=== PATIENT | male | born 1965 | race Caucasian/White ===

== ENCOUNTER 2016-12-21 12:44 | Inpatient (IN) | payer MEDICAID ==
[~2016-12-21] VITALS: Ht 165.1 cm; Wt 60.9 kg
--- NOTE | ~2016-12-21 | CON ---
PATIENT'S NAME: FADIA BALTAZAR [facility] AGE: 51 Y [address] ROOM: [place] [address] LOCATION: GPCU ADMIT DATE: 12/21/2016 Consultation DISCHARGE DATE: 12/28/2016 FAMILY PHYSICIAN: Mary Carmen Otero MD ATTENDING PHYSICIAN: Doreen Perkins DATE OF CONSULTATION: 12/21/2016 REFERRING PHYSICIAN: Doreen Perkins MD INDICATION FOR CONSULTATION: Cardiac arrest. HISTORY OF PRESENTING ILLNESS: Mr. Baltazar is a 51-year-old gentleman, male, who has a known history of coronary artery disease, after myocardial infarction approximately 13 years ago which was treated by stenting to coronary artery disease in [place], [place]. Subsequently, the patient became uninsured and was lost to follow up. The patient's history is all obtained from what was given in the chart and the information obtained from [facility]. Apparently, the patient had been complaining of excessive fatigue, poor appetite with poor intake, he also has not been himself. He was short of breath and felt he had no air in his lungs and had to cut down significantly on his smoking. The patient apparently was found down, CPR was begun and he was shocked about twice in the field, in a VFib rhythm when he arrived to the emergency room in [facility]. He was given epinephrine shock and amiodarone brought him into a sinus rhythm. He was intubated and sedated and at that time his blood pressure was within stable ranges and he was stabilized hemodynamically, again the patient needed the resuscitative measures in the transport to the emergency department. The patient was taken to the laboratory mechanical technician by Cardiology and were able to stent the LAD and the diagonal. After the cardiac catheterization lab, the patient was first transferred to intensive care unit and Critical Care was called for critical care management. PAST MEDICAL HISTORY: Includes, 1. Coronary artery disease, status post SC. PATIENT'S NAME: FADIA BALTAZAR [facility] AGE: 51 Y [address] ROOM: [address] [address] LOCATION: GPCU ADMIT DATE: 12/21/2016 Consultation DISCHARGE DATE: 12/28/2016 FAMILY PHYSICIAN: Mary Carmen Otero MD ATTENDING PHYSICIAN: Doreen Perkins 2. Remarkable for a lack of medical care. 3. Extremely poor dentition. PAST SURGICAL HISTORY: He had a procedure of eye surgery in the past couple of years. He did have cardiac catheterization 13 years ago. ALLERGIES: THERE IS A QUESTIONABLE PENICILLIN ALLERGY. SOCIAL HISTORY: The patient was until his on August 13, 2015, since then he has continued to live with his two younger children. 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 He smoked about half a pack per day for the past 30 years. He drinks 2-3 beers a day according to his family. There is no knowledge of other illicit drug abuse. FAMILY HISTORY: The patient's mother at the age of 51 with complications of viral cardiomyopathy. She actually had gastric hemorrhage. The patient's father at age 72 secondary to ruptured aortic aneurysm. His sister also has viral cardiomyopathy with arrhythmia, reliant on an AICD. REVIEW OF SYSTEMS: Currently unobtainable. The patient is intubated and sedated. LABORATORY DATA: At the time of evaluation, the patient had an INR 1.1, pro-time was 12.5, PTT was 36. White blood cell count was 21.7, hemoglobin was 14.8, hematocrit was 46, MCV was 85, platelets were 401, neutrophils 60, bands 2, lymphocytes 37,. Sodium was 136, potassium 3.9, chloride and CO2 were 101 and 19 respectively, glucose 208, BUN and creatinine was 15 and 1.24 respectively, GFR is greater than 60, calcium is 9.3, total protein is 7.9, albumin was 4.3, AST and ALT were 85 and 56 respectively. Troponin at noon was 0.02. PHYSICAL EXAMINATION: GENERAL: Upon initial evaluation, the patient is lying in bed, in the intensive care unit. VITAL SIGNS: Include blood pressure is 185/85, heart rate was 100, respiratory rate was 32, temperature was 33.5 as the patient has been started on hypothermia protocol. HEENT: Eyes are nonicteric. Pupils are equal and reactive to light. The patient has been moving all his extremities, and apparently according to the nursing staff, he did open his eyes spontaneously. Normocephalic, PATIENT'S NAME: FADIA BALTAZAR [facility] AGE: 51 Y [address]: [address] [address] LOCATION: GPCU ADMIT DATE: 12/21/2016 Consultation DISCHARGE DATE: 12/28/2016 FAMILY PHYSICIAN: Mary Carmen Otero MD ATTENDING PHYSICIAN: Doreen Perkins. There is a tube 22 at the lip line. No ear or nasal discharge noted. NECK: Supple. No lymphadenopathy. No jugular venous distention. LUNGS: Good bilateral air entry. No rales or rhonchi are noted. HEART: S1, S2. No murmurs, rubs, or gallops are appreciated. ABDOMEN: Soft, nontender, no palpable organs. Positive bowel sounds. EXTREMITIES: No clubbing, edema, or cyanosis noted. NEUROLOGICAL EXAMINATION: The patient is not fully awake, but is opening eyes spontaneously. Has reactive pupils and gag reflex is intact. Moving all four extremities and some of his movements are actually purposeful. IMPRESSION AND PLAN: Cardiac arrest. Currently on hypothermia protocol. Given the fact that the patient's neurological assessment was not done correctly, this hypothermia protocol is not appropriate, we will discontinue hypothermia protocol, we will discontinue the sedation, and we will evaluate the patient neurologically. After the neurological evaluation of the patient, the patient is moving all four extremities spontaneously, opening eyes, and purposeful movements of the hands, we will discontinue the sedation. We will do weaning parameters and possibly extubate the patient. I would discontinue all the pressor support given the patient has sustained a good blood pressure and is actually hypertensive. At the current point, the patient was extubated, O2 nasal cannula. I would continue his current medication recommended by Cardiology for his stenting. Neurologically, the patient is still confused, but awake, alert, and starting to orient. I would recommend that the patient put on restraints at the current point. I hold all sedation at the current point. Gastrointestinal and deep venous thrombosis prophylaxis. I do not recommend any further sedation for this patient. Some Precedex (dexmedetomidine) to help to calm the patient down. I would avoid all benzodiazepines, propofol, and antipsychotics. PATIENT'S NAME: FADIA BALTAZAR [facility] AGE: 51 Y [address] ROOM: [address] [address] LOCATION: GPCU ADMIT DATE: 12/21/2016 Consultation DISCHARGE DATE: 12/28/2016 FAMILY PHYSICIAN: Mary Carmen Otero MD ATTENDING PHYSICIAN: Doreen Perkins Nicotine patch. I have spent 65 minutes in critical care time in the care of this patient. Thank you for allowing me to participate in care of this patient. MD AYESHA ALVAREZ/luly /[id number] d: 12/31/16 1414 t: 02/05/17 0909, CONSULTATION REPORT
--- NOTE | ~2016-12-21 | HP ---
PATIENT'S NAME: FADIA BALTAZAR [facility] AGE: 51 Y [address] ROOM: [address] [address] LOCATION: [facility] ADMIT DATE: 12/21/2016 History & Physical DISCHARGE DATE: FAMILY PHYSICIAN: PHYSICIAN, UNKNOWN ATTENDING PHYSICIAN: PAPO RAINEY DATE OF SERVICE: ADDENDUM: PHYSICAL EXAMINATION: GENERAL: This is a thin male who appears much older than stated biologic age. He is in a state of poor hygiene. HEENT: Pupils are equal and sluggishly reactive. Sclerae anicteric. Palpebral conjunctivae are pink without exudate. There is a long untrimmed mcclelland. Oropharynx is remarkable for severely caried teeth, many missing teeth. NECK: Supple without lymphadenopathy or thyromegaly. There is bluish discoloration of the skin of the upper chest and neck. There is no supraclavicular lymphadenopathy. LUNGS: Clear to auscultation bilaterally. CARDIOVASCULAR: There is a 3/6 systolic murmur with a gallop. ABDOMEN: Scaphoid, flat with only the scantest of bowel sounds audible. No mass. EXTREMITIES: There is no edema, cannot palpate pedal or radial pulses, very dusky color and is cool throughout the body, especially the feet. The packing for the radial cath site is intact. There is no bleeding noted. NEUROLOGIC: There is no response to voice or touch. There is some slight twitching on the body. GENITOURINARY: Walter catheter is in place. He is a circumcised male with very small amount of dark amauri urine. PAPO RAINEY MD LM/luly /[id number] D: T: 711 HISTORY & PHYSICAL
--- NOTE | ~2016-12-21 | DS ---
PATIENT'S NAME: FADIA BALTAZAR [facility] AGE: 51 Y [address] ROOM: [address] [place], [place] [address] LOCATION: GPCU ADMIT DATE: 12/21/2016 Discharge Summary DISCHARGE DATE: 12/28/2016 FAMILY PHYSICIAN: Mary Carmen Otero MD ATTENDING PHYSICIAN: Doreen Perkins PRINCIPAL DIAGNOSES: 1. Cardiac arrest. 2. Ischemic cardiomyopathy. 3. Acute coronary syndrome, status post percutaneous intervention, angioplasty, and stenting. 4. Multiple cavitary and then cavitary lung lesions. 5. Vancomycin-resistant enterococcal urinary tract infection. 6. Acute systolic congestive heart failure. HOSPITAL COURSE: Please refer to the admission H and P for a detailed history of initial presentation. This is a 51-year-old male with history of heavy smoking, who presented after having a cardiac arrest on the field and had undergone a few cycles of CPR with successful resuscitation and was subsequently admitted to the ICU. The patient apparently had a VFib arrest and was taken to the open hearth laborer and was noted to have significant coronary artery disease with 3 drug-eluting stents placed emergently. The patient was briefly started on hypothermia protocol and showed significant improvement promptly, and this was stopped. The patient was subsequently extubated and monitored, and during coming days the patient continued to improve, and at this point, he is essentially without any neurological deficits from the cardiac arrest. The patient now with an EF of 35% to 40%; and has been successfully started on all core measure cardiac medications, and he is tolerating it well. The patient is to continue taking dual-antiplatelet therapy as well as all his cardiac medications. The patient was also evaluated for a LifeVest, and that has been arranged, and he is wearing one now, and he is to continue to wear this for the next 30 to 40 days and will have a Cardiology followup in a couple of weeks as well. In addition, the patient was noted to have concerning chest x-ray findings, which prompted an evaluation with chest CT and was noted to have multiple cavitary and then cavitary lung lesions concerning for malignancy. Pulmonology Service was consulted for evaluation of this, however, attempts to facilitate biopsy with IR were not successful due to the patient being on dual-antiplatelet therapy. At this point since stopping or interpreting anti-platelet therapy is not reasonable in this setting. The patient is to follow up with pulmonology clinic with Dr. Pruitt in 1 to 2 weeks to continue to work on what would be the best way to evaluate these lung lesions, and this has been extensively discussed with the patient, and the patient's sister. The patient today is being discharged in satisfactory condition, and he will follow up with cardiology, Dr. Mcgovern in 2 weeks and pulmonology, Dr. Pruitt, in 1 to 2 PATIENT'S NAME: FADIA BALTAZAR [facility] AGE: 51 Y [address] ROOM: [address] [place], [place] [address] LOCATION: GPCU ADMIT DATE: 12/21/2016 Discharge Summary DISCHARGE DATE: 12/28/2016 FAMILY PHYSICIAN: Mary Carmen Otero MD ATTENDING PHYSICIAN: Doreen Perkins as well as his primary care physician in 1 week. PHYSICAL EXAMINATION: GENERAL: On exam, the patient today is alert, awake, and oriented x3, in no acute distress. CHEST: Clear to auscultation bilaterally. HEART: S1, S2, regular rate and rhythm. ABDOMEN: Soft, nontender, and nondistended. A 4 cm diameter hematoma noted periumbilically and appears to be that hematoma from Lovenox injection site. NEUROLOGIC: Nonfocal. MEDICATIONS: Per AUG. DISPOSITION: Home. Greater than 30 minutes were spent in discharge planning and facilitating. MD USHA CAPONE/luly /[id number] d: 12/29/16 0429 t: 01/01/17 1520, DISCHARGE SUMMARY
--- NOTE | ~2016-12-21 | CATH ---
Cardiac Diagnostic + PCI Report Demographics Patient Name GIOVANNY Jennings Gender Male Date of 1965 Age 51 year(s) Patient Number [id number] Date of Study 12/21/2016 Visit Number [id number] Room Number [address] [place] [id number] Ht 167.64 cm Wt 68.8 kg Referring Dinesh Welch MD Primary Physician Physician Maddie Logan MD Performing Efstratiou Secondary Physician Physician Farzaneh Hobbs MD Diagnostic Efstratiou Assisting Physician Physician Farzaneh Hobbs MD Interventional Efstratiou Physician Can Filling Machine Operator Physician Farzaneh Hobbs MD Findings and Conclusions Diagnostic Findings and Conclusion RCA and Circ appears CHIPPER OPERATOR's Focal disease in Distal LAD and proximal second diagonal Diagnostic Recommendations PCI to LAD/Diag 2 and if possible Circ Interventional Findings and Conclusion Successful LUCILA to Distal LAD and second diagonal. Successful advancement of wire down the obtuse marginal but lesion is not crossable with the smallest balloon available. Interventional Recommendations Aspirin and Brilinta after the insertion of orogastric tube. Hypothermia protocol. Procedure Description The patient was brought to the diagnostic cardiac catheterization-EP laboratory by emergency personal. Physician deemed procedure as EMERGENT. The planned puncture-incision site(s) were shaved and prepped with ChloraPrep and draped in the usual sterile manner. Conscious sedation, supplemental oxygen, and pain control medications were delivered by a registered nurse under physician guidance. Surface ECG rhythm, blood pressure measurement, and pulse oximetry were monitored throughout the procedure. Arterial access. The access site was infiltrated with lidocaine. The vessel was entered with the Seldinger technique. A sheath was advanced into the vessel and used for catheter placement. Left heart catheterization. A catheter was advanced across the aortic valve to the left ventricle under fluoroscopic guidance. Resting hemodynamics were obtained. Selective right coronary angiography. A catheter was advanced into the right coronary vessel ostium under fluoroscopic guidance. Contrast was injected by hand. Images were obtained in multiple projections. Selective left coronary angiography. A catheter was advanced into the left coronary vessel ostium under Fluoroscopic guidance. Contrast was injected by hand. Images were obtained in multiple projections. Angioplasty and Stent Placement: A guiding catheter was used to intubate the vessel. A 0.14 wire was then used to cross the lesion. A balloon catheter was placed across the lesion and inflated. The balloon catheter was then removed. A Drug Eluting Stent was placed and inflated. Post placement angiograms were performed. Angioplasty: A guiding catheter was used to intubate the vessel. A 0.14 wire was used to cross the lesion. A balloon was positioned across the lesion and inflated. Post placement angiograms were performed. Arterial artery hemostasis was achieved. The patient was transferred to ICU via cart accompanied by a nurse. The patient left the laboratory in stable condition. Diagnostic Cath Status: Emergency Interventional Cath Status: Emergency Procedure Procedure Type Diagnostic procedure:Angiography:, Coronary Angios /[facility] PCI procedure:Drug Eluting Coronary Stent:, LAD, Diagonal, PTCA:, LAD, Diagonal, CFX Indications: Post Code. The procedure was explained in detail to the patient. Risks, complications and alternative treatments were reviewed. Written consent was obtained. Medications Reviewed with Patient prior to Procedure. Angiographic Findings Dominance: Right Cardiac Arteries and Lesion Findings LMCA: Abnormal. Lesion on LMCA: 10% stenosis . LAD: Abnormal.The 1st Diag appears abnormal. The 2nd Diag appears abnormal. Lesion on 2nd Diag: Proximal subsection.80% stenosis reduced to 0%. Pre procedure MONICA III flow was noted. Post Procedure MONICA III flow was present. The guidewire cross was successful.The lesion was diagnosed as a moderate risk lesion.Culprit lesion. Devices used - Emerge Balloon 2.0 x 15. 1 inflation(s) to a max pressure of: 15 leana. - Promus Premier 2.5 x 24 Stent. 1 inflation(s) to a max pressure of: 11 leana. - NC Emerge Balloon 2.75 x 15. 1 inflation(s) to a max pressure of: 16 leana. - Whisper Wire .014 x 190. Number of passes: 1. Lesion on Dist LAD: Proximal subsection.85% stenosis reduced to 0%. Pre procedure MONICA III flow was noted. Post Procedure MONICA III flow was present. The guidewire cross was successful.The lesion was diagnosed as a moderate risk lesion.Culprit lesion. Devices used - Whisper Wire .014 x 190. Number of passes: 1. - Promus Premier 3.0 x 12 Stent. 1 inflation(s) to a max pressure of: 11 leana. - NC Emerge Balloon 3.25 x 8. 1 inflation(s) to a max pressure of: 14 leana. Lesion on 1st Dia% stenosis . Lesion on Prox LAD: 30% stenosis . LCx: Abnormal.The 1st ob Rut appears abnormal.There is a previous stent on Prox CX Mid subsection. There is a previous stent on Mid CX. There is a previous stent on 1st Ob Rut. Lesion on Prox CX: Ostial.100% stenosis reduced to 99%. Pre procedure MONICA 0 flow was noted. Post Procedure MONICA 0 flow was present. The guidewire cross was successful.The lesion was diagnosed as a high risk lesion.Chronic total occlusion. The lesion was previously treated with the following techniques: stent unknown type. Devices used - Qwiki OTW Push Balloon 1.2 x 8. 2 inflation(s) to a max pressure of: 18 leana. Lesion on 1st Ob Rut% stenosis reduced to 100%. Pre procedure MONICA 0 flow was noted. Post Procedure MONICA 0 flow was present. The guidewire cross was successful.The lesion was diagnosed as a high risk lesion.Chronic total occlusion. The lesion was previously treated with the following techniques: stent unknown type. This is in-stentrestenosis. Devices used - Whisper Wire .014 x 190. Number of passes: 1. - DOC Wire. Number of passes: 1. RCA: Abnormal. Lesion on Prox RCA: 70% stenosis . Comments:long Lesion on Mid RCA: 100% stenosis . Cardiac Collaterals - collateral flow from the Dist LAD to the 1st RPL. Coronary Tree Procedure Data Procedure Date Date: 12/21/2016Start: 01:31 PMEnd: 03:09 PM Entry Locations - Retrograde Percutaneous access was performed through the Right Radial artery (Primary location). A 6 Fr sheath was inserted. Unsuccessful closure attempt was performed using: an R band. Hemostasis was successfully obtained using Mechanical Compression. Closure Comments: Enoch smith placed band with 15 ml air. Procedure Medications Order and Administration + + +---------+---------+ !Time !Medication !Dosage !Route ! + + +---------+---------+ !12/21/2016 !Versed !2 mg !I.V. ! !01:30 PM ! ! ! ! + + +---------+---------+ !12/21/2016 !0.9% NaCl !100 ml/hr!I.V. drip! !01:34 PM ! ! ! ! + + +---------+---------+ !12/21/2016 !PAE Radial Cocktail: Heparin 5000 units,! !I.A. ! !01:35 PM !Nitroglycerin 200mcg, Verapamil 3 mg ! ! ! ! !(ACC_3) ! ! ! + + +---------+---------+ !12/21/2016 !0.9% NaCl !300 ml !I.V. ! !01:37 PM ! ! !bolus ! + + +---------+---------+ !12/21/2016 !Amiodarone !1 mg/min !I.V. drip! !01:37 PM ! ! ! ! + + +---------+---------+ !12/21/2016 !Vecuronium Truxton !10 mg !I.V. ! !01:38 PM ! ! ! ! + + +---------+---------+ !12/21/2016 !Versed !2 mg !I.V. ! !01:39 PM ! ! ! ! + + +---------+---------+ !12/21/2016 !Heparin (ACC_3) !5000 !I.V. ! !01:46 PM ! !units !bolus ! + + +---------+---------+ !12/21/2016 !Integrilin (ACC_7) !20 mg !I.C. ! !01:52 PM ! ! ! ! + + +---------+---------+ !12/21/2016 !Lopressor !2.5 mg !I.V. ! !01:58 PM ! ! ! ! + + +---------+---------+ !12/21/2016 !Nitroglycerin !200 mcg !I.C. ! !02:10 PM ! ! ! ! + + +---------+---------+ !12/21/2016 !Nitroglycerin !100 mcg !I.C. ! !02:10 PM ! ! ! ! + + +---------+---------+ !12/21/2016 !Nitroglycerin !5 mcg/min!I.V. drip! !02:36 PM ! ! ! ! + + +---------+---------+ Devices Used - A6 Fr. BS JR 4 Diag. Catheterwas used for:Right coronary angiography. - A6 Fr. BS JL 3.5 Diag. Catheterwas used for:Left coronary angiography. - A6 Fr. XBLAD 3.5 Guide Catheterwas used for:Diagonal Intervention. Contrast Material - Isovue [id number] ml Fluoroscopy Time: Diagnostic: 17:54 minutes. Total: 17:54 minutes. Fluoroscopy Dose: Diagnostic: 759 mGy. Total: 759 mGy. Estimated Blood Loss: 25 ml. Additional [facility] PCI Information PCI Indication:PCI for high risk Non-STEMI or unstable angina. Medical History Performed Procedures and Imaging Results - No [facility] stress or imaging studies were performed. Allergies - No known allergies. Risk Factors The patient risk factors include:prior PCI on 06/25/2003;last creatinine: 1.2 mg/dl, creatinine clearance: 70.07 ml/min, Current/Recent(w/in 1 year) tobacco use and prior VT . Admission Data Admission Date: 12/21/2016 Admission Time: 12:44 PM Admit Source: [facility] Insurance Payors: None. Clinical Evaluation Leading to Procedure Diagnosed on 12/21/2016 12:00 AM. - There were no CAD presentation symptoms. - The patient has had an episode of cardiac arrest within the last 24 hrs. Snapshots Hemodynamics Condition: Rest O2 Consumption: Estimated: 243.60Heart Rate: 117 bpm Pressures (mmHg) +-----+ + !Site !Pressure ! +-----+ + !LV !91/4 ,12 ! +-----+ + !LV !90/5 ,12 ! +-----+ + !AO !98/60 (78) ! +-----+ + !LV !87/4 ,11 ! +-----+ + !AO !96/60 (76) ! +-----+ + !AO !123/89 (104) ! +-----+ + !AO !150/105 (124) ! +-----+ + Valve Gradients and Areas + +---------+---------+---------+ +---------+ + !Valve !Peak !Mean !Area !Index !Flow !Source ! + +---------+---------+---------+ +---------+ + !Aortic !0 !0 ! ! ! ! ! + +---------+---------+---------+ +---------+ + !Aortic !0 !0 ! ! ! ! ! + +---------+---------+---------+ +---------+ + Shunts Oxygen Values O2 Capacity 201.28 O2 Consumption 243.6 Signatures dtt: Caitlyn Mcgovern dtd: 12/21/16 1331 Physician Self Edit
--- NOTE | ~2016-12-21 | HP ---
PATIENT'S NAME: FADIA BALTAZAR [facility] AGE: 51 Y [address] ROOM: G6204 [place], [place] [address] LOCATION: [facility] ADMIT DATE: 12/21/2016 History & Physical DISCHARGE DATE: FAMILY PHYSICIAN: PHYSICIAN, UNKNOWN ATTENDING PHYSICIAN: PAPO RAINEY DATE OF SERVICE: 12/21/2016 CHIEF COMPLAINT: Cardiac arrest in the field. HISTORY OF PRESENT ILLNESS: Mr. Baltazar is a 51-year-old male who has a known history of coronary artery disease after myocardial infarction approximately 13 years ago, which was treated by stenting to two coronary arteries in [place], [place]. Subsequently, he became uninsured, was unable to afford his medicines or see his physicians. He has been off all medications and has no medical followup in the recent past. The patient's history is all obtained from what was given to me by Dr. Montiel of the emergency room in [place] and family, mostly Ute, the patient's sister. According to Ute, the patient recently began complaining of excessive fatigue, poor appetite with poor intake, his sister also said that his color appeared dias or ashen, and he reported he was short of breath and felt he had no air in his lungs and had cutdown significantly on smoking. He also admitted that he had difficulty working outside recently. In addition, he reported urinary urgency, burning, frequency, and difficulty with his flow in the recent past. His youngest child, 12-year-old daughter, Chelsie, reports he has been going to bed early lately. Dr. Montiel from [place] [facility] notified me of the patient's need to be transferred to our facility and stated that his coworkers saw him go into a building and briefly thereafter went to look for him, he was found down, CPR was begun, he was shocked about twice in the field in a VFib rhythm. When he arrived at the emergency room there, he was given epi, shock, and amiodarone brought him into a sinus rhythm. He was intubated and sedated; and at that time, his blood pressure was 123/64, heart rate is 94, oxygen saturation 99%. However, in the interim during transport, he again needed resuscitative measures. He was taken directly to the Mix Technician here at the hospital and again required recurrent resuscitative measures. Dr. Mcgovern was able to stent the LAD, the diagonal twice. Please see his documentation for more details on the cardiac catheterization, which was done before his admission to the ICU when I met him. When I came to see the patient, he was being placed on the hypothermia PATIENT'S NAME: FADIA BALTAZAR [facility] AGE: 51 Y [address] ROOM: [place] [address] LOCATION: [facility] ADMIT DATE: 12/21/2016 History & Physical DISCHARGE DATE: FAMILY PHYSICIAN: PHYSICIAN, UNKNOWN ATTENDING PHYSICIAN: PAPO RAINEY protocol and will continue on the ventilator for further monitoring and treatment here. PAST MEDICAL HISTORY: 1. Coronary artery disease, status post MD. 2. Remarkable for a lack of medical care. 3. Extremely poor dentition. PAST SURGICAL HISTORY: He had a procedure to remove diodes of a battery from his right eye in the past couple of years. ALLERGIES: QUESTIONABLE PENICILLIN ALLERGY, CANNOT BE CORROBORATED. HIS SISTER THINKS HE MAY HAVE BEEN ALLERGIC TO PENICILLIN HER FATHER WAS. SOCIAL HISTORY: The patient was until his on August 13, 2015; and since then, he has continued to live with his 2 younger children Isaías and Chelsie. 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 He did dip and smoked about half-a-pack per day for 30 years. He drank 2 to 3 beers a day according to his family reports. There is no knowledge of other illicit drug use. FAMILY HISTORY: The patient's mother at age 51 with complications of viral cardiomyopathy. She actually had gastric hemorrhage. The patient's father at age 72 of ruptured abdominal aortic aneurysm. His 56-year-old sister Ute who is here reports viral cardiomyopathy with arrhythmia reliant on an AICD and he has another sister in her late 50s with insulin-dependent diabetes mellitus. REVIEW OF SYSTEMS: Negative except as in the HPI because the patient is intubated and sedated and no other history can be obtained at this time. LABORATORY DATA: I will give you from what was available from [place] [facility], he had an INR of 1.1, pro-time of 12.5, and PTT of 36. White blood cell count 21.7, hemoglobin 14.8, hematocrit 46, MCV 85, platelets 401, neutrophils 60, bands 2, and lymphocytes 37. Sodium 136, potassium 3.9, chloride 101, CO2 19, glucose 208, BUN 15, creatinine 1.24, GFR is greater than 60, calcium 9.3, total protein 7.9, albumin 4.3, AST 85, AST 56, troponin at noon was 0.02. I do not have any radiographic studies. ASSESSMENT AND PLAN: PATIENT'S NAME: FADIA BALTAZAR [facility] AGE: 51 Y [address] ROOM: [address] [address] LOCATION: [facility] ADMIT DATE: 12/21/2016 History & Physical DISCHARGE DATE: FAMILY PHYSICIAN: PHYSICIAN, UNKNOWN ATTENDING PHYSICIAN: PAPO RAINEY 1. Severe coronary artery disease. The patient has had the lesions addressed and is on hypothermia protocol in the ICU. Family has been apprised of his status, allowed to visit, and their questions have been addressed. We will continue with this protocol according to Dr. Mcgovern's recommendations for his coronary artery disease. 2. Leukocytosis. He did have an elevated white count, which could be attributable to demargination with the stress of cardiac arrest and resuscitation efforts. However, we will check blood cultures, urinalysis, urine culture, and watch for signs and symptoms of infection. 3. Acute respiratory failure. He is currently not responsive, not sedated, and no sedation has been required since he arrived in the ICU at 1448 hours this afternoon. He will be monitored closely and we may need to consider consulting Neurology if he fails to have meaningful responses. 4. As far as Nephrology, he has had 700 mL out on arrival to the ICU and he has not had much urine output since then and we will monitor his output closely and may need to consult Nephrology. 5. Disposition. Continue aggressive care in the ICU and keep the family well-updated. PAPO RAINEY MD LM/luly /[id number] D: [id number] HISTORY & PHYSICAL
--- NOTE | ~2016-12-21 | CON ---
PATIENT'S NAME: FADIA BALTAZAR [facility] AGE: 51 Y [address] ROOM: G6329 [place], [place] [address] LOCATION: GPCU ADMIT DATE: 12/21/2016 Consultation DISCHARGE DATE: FAMILY PHYSICIAN: Mary Carmen Otero MD ATTENDING PHYSICIAN: PAPO RAINEY REASON FOR CARDIOLOGY CONSULT: Ventricular fibrillation, cardiac arrest, and status post heart catheterization. HISTORY OF PRESENT ILLNESS: This is a 51-year-old male. His health history and events leading up to his admission are retrieved from chart review due to the patient's poor mentation and remembrance of details around the event. He has a known coronary artery disease history with a previous CT about 13 years ago with stents placed in [place]. The patient has not been following up with health care providers due to not having health insurance. His family notes that he has been showing signs of increased fatigue and poor appetite and has been going to bed sooner. While at work yesterday, his coworkers found him unresponsive and performed CPR, and he did receive a shock from an external cardiac defibrillator. There was return of circulation prior to transfer to [facility] for higher level of care. There was also notation of another arrest while in the catheterization suite where he was taken emergently by Dr. Mcgovern for evaluation of coronary anatomy. At the time of this dictation, he is currently status post drug-eluting stent placement to the LAD and the diagonal artery. He is resting comfortably in bed at this time and has no complaints of pain, shortness of breath, palpitations, presyncope, syncope, nausea, or vomiting. PAST MEDICAL HISTORY: From chart review, coronary artery disease. PAST SURGICAL HISTORY: From chart review, removal of a piece of a battery from his right eye. FAMILY HISTORY: From chart review. His mother had a history of viral cardiomyopathy as well as gastric hemorrhage. The patient's father due to a ruptured abdominal aortic aneurysm at the age of 72. There is a sister who has cardiomyopathy as well as need for AICD for arrhythmias, and a sister with diabetes mellitus. SOCIAL HISTORY: The patient is a current daily cigarette smoker. He smokes a half a pack per day and has done so for the last 30 years. He admits to alcohol use on 7 days a week, and on those days, he will have up to 3 drinks at a time. He denies PATIENT'S NAME: FADIA BALTAZAR [facility] AGE: 51 Y [address] ROOM: [address] [place], [place] [address] LOCATION: GPCU ADMIT DATE: 12/21/2016 Consultation DISCHARGE DATE: FAMILY PHYSICIAN: Mary Carmen Otero MD ATTENDING PHYSICIAN: PAPO RAINEY illicit drug use. CURRENT MEDICATIONS: 1. Protonix 40 mg IV daily. 2. Amiodarone IV drip per protocol. 3. Levaquin 750 mg IV daily in the evening. 4. Aspirin 81 mg p.o. daily. 5. Brilinta 90 mg p.o. twice daily. 6. Amiodarone 200 mg p.o. twice daily. 7. Lipitor 80 mg p.o. daily. 8. Lopressor 25 mg p.o. twice daily. 9. Lovenox 40 mg subcu daily. 10. NicoDerm patch 14 mg transdermally daily. MEDICATION ALLERGIES: Include penicillin. REVIEW OF SYSTEMS: Pertinent positive review of systems listed in the HPI. All other review of systems attempted to be evaluated and compared with those in chart documentation. Full details hard to obtain due to the patient's confusion about details around admission. PHYSICAL EXAMINATION: VITAL SIGNS: Temperature 97.9, pulse 65, respirations 20, blood pressure 107/72, and O2 saturation 97% on room air. The patient weighs 62.5 kg. SKIN: He has a reddened hue to it, but warm and dry. EYES: Sclerae are clear. No xanthelasma. ENT: Oral mucosa is pink and moist. No jugular venous distention or carotid bruits. CHEST: Respirations are even and unlabored. Lungs are clear to auscultation to bilateral upper lobes. They are diminished to bilateral lower lobes. HEART: Regular rate and rhythm. The patient does have a 2/6 holosystolic murmur noted at the apex. ABDOMEN: Soft and nontender. MUSCULOSKELETAL: Equal muscle strength to upper and lower extremities bilaterally against resistance. EXTREMITIES: Peripheral pulses palpable. No clubbing, cyanosis, or edema. His right radial procedure site is soft and nontender with adequate circulation, movement, and sensation noted. PSYCHIATRIC: Alert and oriented. Mood and affect are appropriate. IMPRESSION AND PLAN: Per Dr. Mcgovern. 1. Ventricular fibrillation arrest with return of spontaneous circulation. PATIENT'S NAME: FADIA BALTAZAR [facility] AGE: 51 Y [address] ROOM: [address] [address] LOCATION: GPCU ADMIT DATE: 12/21/2016 Consultation DISCHARGE DATE: FAMILY PHYSICIAN: Mary Carmen Otero MD ATTENDING PHYSICIAN: PAPO RAINEY The patient was on hypothermia protocol for a very short amount of time, but he did spontaneously regain neurologic status and was awake and able to be successfully extubated. So, hypothermia protocol was discontinued. 2. Severe coronary artery disease. Currently, status post drug-eluting stent to the left anterior descending and the diagonal. There is also notation of chronic circumflex occlusion with collateral noted. He is on aspirin, Brilinta, statin and beta sharon. 3. Nonsustained ventricular tachycardia. 4. Ischemic cardiomyopathy. The patient currently has good neurologic recovery. He will need an ICD or a LifeVest prior to discharge. We will check an echocardiogram today to fully evaluate ejection fraction as well as look for wall motion and valvular abnormalities. We will continue to monitor, evaluate, and treat as appropriate. Thank you for this consult. Thank you for allowing [facility] to interact in the care of this patient. CJ AC MD DEH/luly /[id number] d: 12/22/16 1510 t: 01/02/17 0820, CONSULTATION REPORT
--- NOTE | ~2016-12-21 | ECHO ---
Transthoracic Echocardiography Report (TTE) Demographics Patient Name FADIA BALTAZAR Date of Study 12/22/2016 Patient Number [id number] Visit Number [id number] Date of 1965 Room Number G6329 Accession Number [id number] Gender Male Age 51 year(s) Referring Maddie Logan MD Loom Setter Avery Tamayo RVT Physician Physician Interpreting Efstratiou Operations Research Director Physician Farzaneh John MD Supervising Ordering Physician Maddie Logan MD, MD/MLP Nurse Stress Oracle Fusion Consultant Conclusions Contractility Score Summary At rest the following contractility abnormalities were noted: Hypokinesis of the Mid infero-septal, the Mid inferior, the Mid infero-lateral, the Basal infero-lateral, the Apical inferior, the Apical septal, the Basal infero-septal and the Basal inferior segments. Contractility of all other segments appeared normal. Summary Procedure Type of Study TTE procedure:2D Echocardiogram. Procedure Date Date: 12/22/2016 Start: 02:43 PM Study Location: Inpatient Portable Technical Quality: Adequate visualization Additional Indications:post cardiac arrest Appropriate Use Criteria: 9 Patient Status: Routine HR: 68 bpm BP: 97/66 mmHg Allergies - No known allergies. M-Mode/2D Measurements LV Diastolic Dimension: 5.79 cm LV Systolic Dimension: 5.13 cm LV Septum Diastolic: 1.59 cm LV PW Diastolic: 1.29 cm AO Root Dimension: 2.2 cm Cardiac Output: 2.93 l/min AV Cusp Separation: 1.8 cm LVOT: 2 cm RV Base: 3.41 cm LVOT VTI: 13.7 cm RV Mid: 3.66 cm LV Stroke volume: 43.02 ml TAPSE: 2.2 cm TDI-S': 9.1 cm/s Doppler Measurements AV Peak Velocity: 1.31 m/s MV Peak E-Wave: 0.88 m/s AV Peak Gradient: 6.86 mmHg MV Peak A-Wave: 0.57 m/s AV Mean Gradient: 4 mmHg MV E/A Ratio: 1.55 LVOT Peak Velocity: 0.73 m/s MV P1/2t: 61 msec TR Gradient:9.49 mmHg PV Peak Velocity: 0.95 m/s Estimated RAP:15 mmHg PV Peak Gradient: 3.61 mmHg Estimated RVSP: 24 mmHg Estimated PASP: 24.49 mmHg E' Septal Velocity: 0.07 m/s A' Septal Velocity: 0.11 m/s E' Lateral Velocity: 0.09 m/s A' Lateral Velocity: 0.08 m/s Findings Left Ventricle Mild concentric left ventricular hypertrophy. Diastolic assessment reveals Grade II pseudonormal diastolic function . False tendon noted in LV. The left ventricle is mildly dilated . Inferior, posterior and septal hypokinesis Estimated EF: 30 %. Right Ventricle Mildly dilated right ventricle. Left Atrium Normal left atrial size. Right Atrium IVC measures 2.18 cm with partial inspiratory collapse. The right atrium is mildly dilated. Mitral Valve Mild mitral annular calcification. Mild calcification of the mitral valve. Moderate mitral regurgitation by color Doppler. Aortic Valve The aortic valve is mildly sclerotic. Tricuspid Valve Trivial tricuspid regurgitation by color Doppler. Pulmonic Valve Normal pulmonic valve structure and function. Pericardial Effusion No evidence of pericardial effusion. Miscellaneous Visualized portions of the aortic root and ascending aorta appear normal in size. Pleural Effusion No evidence of pleural effusion. Contractility Score LV regional wall motion:(0-Non visualized 1-Normal 2-Hypokinesis 3-Akinesis 4-Dyskinesis 5-Aneurysm) Signature dtt: Caitlyn Mcgovern dtd: 12/22/16 1443 Physician Self Edit
[2016-12-21 17:00] LABS: HEMATOCRIT 44.9 % (37.0-53.0); MCH 28.3 pg (27.0-34.0); MCHC 31.2 gm/dL (32.0-36.5); MCV 90.7 fl (83.0-98.0); MPV 9.7 fl (9.4-12.4); PLATELET COUNT 514 K/uL (150-450); RBC 4.95 M/uL (4.00-6.00); RDW-CV 13.8 % (11.9-14.6)
[2016-12-21 17:03] LABS: WBC 38.8 K/uL (4.0-11.0)
[2016-12-21 17:15] LABS: ALBUMIN 3.1 gm/dL (3.5-5.0); ALK PHOS 92 IU/L (33-138); ALT 113 IU/L (12-78); ANION GAP 14.5 (10.0-19.0); AST 287 IU/L (10-40); BLOOD UREA NITROGEN 17 mg/dL (6-24); CALCIUM 7.7 mg/dL (8.5-10.5); CHLORIDE 108 mMol/L (96-110); CO2 21 mMol/L (22-32); CREATININE 1.2 mg/dL (0.6-1.3); ESTIMATED GFR (MDRD EQUATION) > 60; MAGNESIUM 2.9 mg/dL (1.8-2.6); PHOSPHORUS 6.4 mg/dL (2.5-4.9); POTASSIUM 4.5 mMol/L (3.7-5.1); SODIUM 139 mMol/L (135-145); TOTAL PROTEIN 6.9 g/dL (6.0-8.4)
[2016-12-21 17:36] LABS: ABSOLUTE NEUTROPHIL CT (ANC) 32.6 K/uL (1.4-9.0); BANDED NEUTROPHILS % 18 %; LYMPHOCYTE # 3.1 K/uL (0.8-4.0); LYMPHOCYTE % 7 %; MONOCYTE # 3.9 K/uL (0.0-1.0); SEGMENTED NEUTROPHIL # 25.6 K/uL (1.4-9.0); SEGMENTED NEUTROPHIL % 66 %
[2016-12-21 17:52] LABS: INR - (THERAPEUTIC) 1.23 (0.92-1.07); MAGNESIUM 2.9 mg/dL (1.8-2.6); PROTIME 12.9 SECONDS (9.8-11.4)
[2016-12-21 17:56] LABS: BILIRUBIN URINE NEGATIVE (NEGATIVE); BLOOD URINE 250 /UL (NEGATIVE); COLOR URINE YELLOW (YELLOW); GLUCOSE URINE 50 mg/dL (NEGATIVE); KETONE URINE NEGATIVE (NEGATIVE); LEUKOCYTES URINE NEGATIVE /UL (NEGATIVE); NITRITE URINE NEGATIVE (NEGATIVE); PROTEIN URINE 30 mg/dL (NEGATIVE); TURBIDITY URINE 3+ (CLEAR); UROBILINOGEN URINE NORMAL (NORMAL)
[2016-12-21 18:03] LABS: PCO2 44 mmHg (35-45); PO2 151 mmHg (80-90)
[2016-12-21 18:07] LABS: AMORPHOUS URINE 2+ (NEGATIVE); BACTERIA URINE MODERATE (NEGATIVE); RBC URINE 20-50 #/HPF (NEGATIVE); WBC URINE NEGATIVE #/HPF (NEGATIVE)
[2016-12-21 18:15] LABS: LACTATE 4.1 mEq/L (0.50-1.60)
--- NOTE | 2016-12-22 01:38 | NUR ---
Patient was extubated at 19:50 this shift.
[2016-12-22 02:21] LABS: ANION GAP 14.2 (10.0-19.0); BLOOD UREA NITROGEN 20 mg/dL (6-24); CALCIUM 7.8 mg/dL (8.5-10.5); CHLORIDE 111 mMol/L (96-110); CO2 19 mMol/L (22-32); CREATININE 0.8 mg/dL (0.6-1.3); ESTIMATED GFR (MDRD EQUATION) > 60; MAGNESIUM 2.3 mg/dL (1.8-2.6); POTASSIUM 4.2 mMol/L (3.7-5.1); SODIUM 140 mMol/L (135-145)
[2016-12-22 04:37] LABS: HEMOGLOBIN 11.9 g/dL (12.0-17.0)
[2016-12-22 04:58] LABS: ALK PHOS 72 IU/L (33-138); ALT 192 IU/L (12-78); ANION GAP 13.3 (10.0-19.0); BLOOD UREA NITROGEN 19 mg/dL (6-24); CALCIUM 8.1 mg/dL (8.5-10.5); CHLORIDE 109 mMol/L (96-110); CO2 21 mMol/L (22-32); CREATININE 0.7 mg/dL (0.6-1.3); ESTIMATED GFR (MDRD EQUATION) > 60; POTASSIUM 4.3 mMol/L (3.7-5.1); SODIUM 139 mMol/L (135-145); TOTAL PROTEIN 6.5 g/dL (6.0-8.4)
[2016-12-22 05:00] LABS: AST 411 IU/L (10-40); TOTAL BILIRUBIN 0.3 mg/dL (0.0-1.5)
--- NOTE | 2016-12-22 05:45 | NUR ---
Significant Event: PATIENT EXTUBATED AT 1954. AGITATED AND RESTLESS POST EXTUBATION. CALMED DOWN THROUGHOUT SHIFT. CONFUSED ABOUT REASON FOR ADMIT, ASKING WHERE HE IS AND WHY WITH ALL ROUNDING. MOVES ALL EXTREMITIES SPONTANEOUSLY AND TO COMMAND. STARTED ON LEVOPHED GTT TO MAINTAIN MAP 65-70 CURRENTLY AT 0.02MCG/KG/MIN. CONTINUES ON AMIODARONE GTT. HYPOTHERMIA DC'D AT 1909. ON ROOM AIR. PIV X3. WALTON WITH GOOD UOP. NPO WITH SIPS. Follow up:
--- NOTE | 2016-12-22 13:54 | NUR ---
PATIENT TRANSFERED UP TO ROOM 6329, PCU [place]. RECIEVING RN WAS MARBIN. PATIENT WENT UP IN RECLINER. PATIENT'S FAMILY MET PATIENT IN NEW ROOM ON PCU. PATIENT AND FAMILY WAS ACCEPTING OF THIS TRANSFER.
--- NOTE | 2016-12-22 15:22 | NUR ---
ST attempted to complete evaluation at 1508..Pt. completing ultrasound. 1517...Pt. with outsole caser. ST plan to follow-up when pt. available to participate in assessment.
--- NOTE | 2016-12-22 17:27 | NUR ---
Significant Event: Patient disoriented to time. Forgetful. VSS on RA. Amiodarone gtt off and will start PO amiodarone tonight. Transferred from ICU at 1120. Walter removed and has had post-residual void. RFA PIV infusing with NS at 75 ml/h. Speech consult due to cognition. Denies pain or shortness of breath. Plan to have CT of chest tomorrow without contrast. Follow up: Continue as per plan of care. Monitor for Vtach. Monitor neuro status.
--- NOTE | 2016-12-22 17:33 | NUR ---
Introduced self and role of care management to patient. He lives in [place] with 2 of his 3 children. He is self pay. Referral has been made to Emilia with [facility]. His sister wanted to talk to me about finances and he says she is in the waiting room. Checked waiting room several times but not there. He plans home when ready for discharge. Says his children will assist him. Will follow.
--- NOTE | 2016-12-23 04:56 | NUR ---
DISORIENT TO TIME. FORGETFUL. STATES IT IS 2006. HR 60-70s. SBP 110-120s. AFEBRILE. ROOM AIR. C/O SORNESS TO CHEST FROM CPR BEING PREFORMED. TYLENOL GIVEN WITH RELIEF NOTED. SBA UP TO BATHROOM. NO BM. NS RUNNING AT 75ML/HR. NO VOIDS OR URGENCY DURING SHIFT. BLADDER SCAN SHOWED GREATER THAN 999ML. ATTEMPTED TO STAND UP AND VOID WITH ONLY DRIBBLE. WALTON REPACED WITH 1400ML UOP INITIALLY.
[2016-12-23 14:21] LABS: BASOPHIL % 0.2 %; EOSINOPHIL % 0.4 %; HEMATOCRIT 35.4 % (37.0-53.0); HEMOGLOBIN 11.4 g/dL (12.0-17.0); IMMATURE GRANULOCYTE % 0.4 %; LYMPHOCYTE # 1.4 K/uL (0.8-4.0); LYMPHOCYTE % 13.9 %; MCH 27.8 pg (27.0-34.0); MCHC 32.2 gm/dL (32.0-36.5); MCV 86.3 fl (83.0-98.0); MONOCYTE # 0.6 K/uL (0.0-1.0); MONOCYTE % 6.6 %; MPV 9.7 fl (9.4-12.4); NEUTROPHIL # (ANC) 7.7 K/uL (1.4-9.0); NEUTROPHIL % 78.5 %; NRBC % 0 /100WBC (0-0.00); RDW-CV 13.9 % (11.9-14.6); WBC 9.8 K/uL (4.0-11.0)
[2016-12-23 14:22] LABS: PLATELET COUNT 208 K/uL (150-450)
--- NOTE | 2016-12-23 15:47 | NUR ---
Significant Event: Patient A/O x 2, forgetful, and up with SBA. Disoriented to time and consistently states that it is 2006. Speech therapist worked with patient today. CT of chest revealed multiple lung masses so Dr. Pruitt asked to come see the patient. Plan to have CT guided biopsy on Sunday. Walter catheter to dependent drainage- placed early this morning due to retention- 2300 ml UOP. RFA PIV SL and LFA PIV with NS infusing at 75 ml/h. MD talked to family today about plan of care and explained what has happened in the last few days thoroughly. Follow up: Continue as per plan of care. Monitor cognition. Plan for CT guided biopsy on Sunday.
[2016-12-24 04:57] LABS: BASOPHIL % 0.3 %; EOSINOPHIL % 0.4 %; HEMATOCRIT 38.1 % (37.0-53.0); IMMATURE GRANULOCYTE # 0.1 K/uL (0.0-0.3); IMMATURE GRANULOCYTE % 0.6 %; LYMPHOCYTE # 1.1 K/uL (0.8-4.0); LYMPHOCYTE % 11.6 %; MCHC 31.5 gm/dL (32.0-36.5); MCV 85.6 fl (83.0-98.0); MONOCYTE # 0.6 K/uL (0.0-1.0); MONOCYTE % 6.2 %; MPV 9.6 fl (9.4-12.4); NEUTROPHIL # (ANC) 7.3 K/uL (1.4-9.0); NEUTROPHIL % 80.9 %; NRBC % 0 /100WBC (0-0.00); PLATELET COUNT 226 K/uL (150-450); RBC 4.45 M/uL (4.00-6.00); RDW-CV 14.1 % (11.9-14.6); WBC 9.1 K/uL (4.0-11.0)
--- NOTE | 2016-12-24 05:00 | NUR ---
Patient is disoriented to time, states that it is 2012 or 2015. Lung sounds clear on RA. Walter catheter with 2,150mL output. CT guided biopsy on Sunday for multiple lung masses. VSS. No complains of pain. Left AC IV running NS at 75mL/hr and right hand IV saline locked.
[2016-12-24 05:11] LABS: ALBUMIN 2.6 gm/dL (3.5-5.0); ANION GAP 10.1 (10.0-19.0); BLOOD UREA NITROGEN 11 mg/dL (6-24); CALCIUM 8.2 mg/dL (8.5-10.5); CHLORIDE 110 mMol/L (96-110); CO2 25 mMol/L (22-32); CREATININE 0.7 mg/dL (0.6-1.3); ESTIMATED GFR (MDRD EQUATION) > 60; PHOSPHORUS 2.5 mg/dL (2.5-4.9); POTASSIUM 4.1 mMol/L (3.7-5.1); SODIUM 141 mMol/L (135-145)
--- NOTE | 2016-12-24 16:58 | NUR ---
Significant Event: Patient A/O x 3 today. Cognition and memory significantly improved from previous days. Able to remember date today and have quicker memory recall. Up in room independently. VSS on RA. LFA and PIV SL. Walter removed at 1315 and still awaiting post-residual void. BM this shift. Denies any needs throughout the day. Follow up: Continue as per plan of care. Continue to monitor neuro status urinary status.
[2016-12-25 03:40] LABS: BASOPHIL % 0.5 %; EOSINOPHIL # 0.1 K/uL (0.0-0.5); EOSINOPHIL % 0.6 %; HEMATOCRIT 42.8 % (37.0-53.0); HEMOGLOBIN 13.6 g/dL (12.0-17.0); IMMATURE GRANULOCYTE % 0.5 %; LYMPHOCYTE # 1.4 K/uL (0.8-4.0); LYMPHOCYTE % 16.3 %; MCH 27.4 pg (27.0-34.0); MCHC 31.8 gm/dL (32.0-36.5); MCV 86.3 fl (83.0-98.0); MONOCYTE # 0.6 K/uL (0.0-1.0); MONOCYTE % 6.7 %; MPV 9.9 fl (9.4-12.4); NEUTROPHIL # (ANC) 6.6 K/uL (1.4-9.0); NEUTROPHIL % 75.4 %; NRBC % 0 /100WBC (0-0.00); PLATELET COUNT 269 K/uL (150-450); RBC 4.96 M/uL (4.00-6.00); WBC 8.8 K/uL (4.0-11.0)
[2016-12-25 03:49] LABS: ALBUMIN 3.1 gm/dL (3.5-5.0); ANION GAP 11.3 (10.0-19.0); BLOOD UREA NITROGEN 13 mg/dL (6-24); CALCIUM 8.6 mg/dL (8.5-10.5); CHLORIDE 108 mMol/L (96-110); CO2 26 mMol/L (22-32); CREATININE 0.9 mg/dL (0.6-1.3); ESTIMATED GFR (MDRD EQUATION) > 60; PHOSPHORUS 3.7 mg/dL (2.5-4.9); POTASSIUM 4.3 mMol/L (3.7-5.1); SODIUM 141 mMol/L (135-145)
[2016-12-25 04:18] LABS: ALBUMIN 3.1 gm/dL (3.5-5.0); ALK PHOS 74 IU/L (33-138); ALT 139 IU/L (12-78); AST 137 IU/L (10-40); TOTAL BILIRUBIN 0.3 mg/dL (0.0-1.5)
[2016-12-25 04:25] LABS: CPK 3171 IU/L (35-332)
--- NOTE | 2016-12-25 05:09 | NUR ---
Patient A/Ox3. VSS on RA. Up ad devyn in room. Lungs clear. Bowel sounds present. Voiding well, started on flomax. No complaints. IVs saline locked.
--- NOTE | 2016-12-25 11:15 | NUR ---
Notified by speech therapy this a.m. that patient has some financial concerns and living arrangement concerns. Talked to patient, his sister and his 12 year old daughter present. Patient's last year. Daughter will be 13 soon. A 26 year old son also lives with him and he has told his son he is going to have to get a job and help out financially. Sister says his boss has told her if he has the life vest he does not want him working until it is off. He says that could mean 3-4 months before he can work at that job. 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 He says he knows he evicted one evelyn when he couldn't work anymore and he is afraid that could happen to him too. He says he is going to try and look for another job until he can return to current job. He is uncertain how much DrJennifer will let him do. Encouraged him to discuss with the Drs. what restrictions he will have on activity, lifting etc. Told him I will make a referral to Emilia with [employer] to come and talk with him about what things he may be eligible for and if able to apply for disability or medicaid. Told him I didn't think he could but having a minor child in his home, may help with some resources. Told him it will be up to [employer] if they approve for patient to have life vest or not since he does not have insurance and is unable to pay for it. He has financial assistance form for [facility] and sister says they will get it filled out. Referral made to Emilia with [employer] and she will try to touchbase with them today. Will follow.
--- NOTE | 2016-12-25 14:04 | NUR ---
A-NUTRITION F/U CBW (STANDING SCALE): 60.9 KG. ADMIT WT (BED SCALE): 63.9 KG LABS: NA 141, K+ 4.3, GLU 109, BUN 13, DRY DIP WORKER 0.9, ALB 3.1 MEDS: BRILINTA, PROTONIX DIET RX: CARDIAC W/ENSURE ENLIVE BID. PO INTAKE 75-100%. VISITED W/PT RE: SUPPLEMENT. PT STATES THAT HE LIKES IT AND THAT HE HAS BEEN DRINKING IT. REPORTS GOOD APPETITE. EST NUTR NEEDS: [id number] KCALS AND 75-96 GM PROTEIN D-AT NUTRITION RISK W/UNINTENDED WT LOSS GENERAL LABORER R/T INADEQUATE ORAL INTAKE AEB (+)MST, PT REPORT I-CONTINUE W/ENSURE ENLIVE BID M/E-GOAL: PO INTAKE >/=75% FOR DURATION OF ADMIT 1)F/U PO INTAKE, SUPPLEMENT, WT, AND POC IN 3-5 DAYS 2)ASSIST NEEDED
--- NOTE | 2016-12-25 16:57 | NUR ---
Significant Event:Patient has been up ad devyn in room without complaints of pain. It sounds like the lung biopsy will wait. Patient on room air. Starting to get anxious to go home. Decreased the Lopressor dose, his SBP 103 and 96 this am. Lowere the dose, with parameter to hold if SBP <95. Follow up:Needs life vest before discharge
[2016-12-26 04:16] LABS: BASOPHIL % 0.5 %; EOSINOPHIL # 0.1 K/uL (0.0-0.5); EOSINOPHIL % 1.1 %; HEMATOCRIT 38.5 % (37.0-53.0); HEMOGLOBIN 12.2 g/dL (12.0-17.0); IMMATURE GRANULOCYTE # 0.1 K/uL (0.0-0.3); IMMATURE GRANULOCYTE % 0.9 %; LYMPHOCYTE # 1.3 K/uL (0.8-4.0); LYMPHOCYTE % 15.6 %; MCH 27.3 pg (27.0-34.0); MCHC 31.7 gm/dL (32.0-36.5); MCV 86.1 fl (83.0-98.0); MONOCYTE # 0.7 K/uL (0.0-1.0); MPV 9.6 fl (9.4-12.4); NEUTROPHIL # (ANC) 6.3 K/uL (1.4-9.0); NEUTROPHIL % 73.9 %; NRBC % 0 /100WBC (0-0.00); PLATELET COUNT 250 K/uL (150-450); RBC 4.47 M/uL (4.00-6.00); RDW-CV 13.9 % (11.9-14.6); WBC 8.5 K/uL (4.0-11.0)
[2016-12-26 04:29] LABS: ALBUMIN 2.9 gm/dL (3.5-5.0); ANION GAP 11.4 (10.0-19.0); BLOOD UREA NITROGEN 15 mg/dL (6-24); CALCIUM 8.6 mg/dL (8.5-10.5); CHLORIDE 107 mMol/L (96-110); CO2 27 mMol/L (22-32); CREATININE 0.9 mg/dL (0.6-1.3); ESTIMATED GFR (MDRD EQUATION) > 60; PHOSPHORUS 3.6 mg/dL (2.5-4.9); POTASSIUM 4.4 mMol/L (3.7-5.1); SODIUM 141 mMol/L (135-145)
--- NOTE | 2016-12-26 04:41 | NUR ---
A/Ox3. VSS on RA. Up ad devyn in room. Lungs clear, bowel sounds present. IV in right anterior arm and left anterior arm. 1,200mL of output. No complaints. Needs a life vest on d/c.
--- NOTE | 2016-12-26 16:47 | NUR ---
Significant Event: VSS AND RA. DENIES PAIN. UP IN CHAIR AND AMBULATES IN [place] TODAY. ENTRESTO STARTED. Follow up: CONTINUE PLAN OF CARE; AWAITING LIFE VEST PRIOR TO D/C.
--- NOTE | 2016-12-27 04:08 | NUR ---
Significant Event: Patient A/Ox3. VSS on RA. Up independently in room. Patient has had no complaints of chest pain. SBP 99-103. HR 60s-70s. IV levaquin given x1. Follow up: Discharge in next few days? Needs life vest upon d/c.
[2016-12-27 04:55] LABS: BASOPHIL % 0.4 %; EOSINOPHIL # 0.1 K/uL (0.0-0.5); EOSINOPHIL % 0.8 %; HEMATOCRIT 38.4 % (37.0-53.0); HEMOGLOBIN 12.7 g/dL (12.0-17.0); IMMATURE GRANULOCYTE # 0.1 K/uL (0.0-0.3); IMMATURE GRANULOCYTE % 1.1 %; LYMPHOCYTE # 1.2 K/uL (0.8-4.0); LYMPHOCYTE % 11.3 %; MCH 28.4 pg (27.0-34.0); MCHC 33.1 gm/dL (32.0-36.5); MCV 85.9 fl (83.0-98.0); MONOCYTE # 0.9 K/uL (0.0-1.0); MONOCYTE % 8.9 %; MPV 9.7 fl (9.4-12.4); NEUTROPHIL # (ANC) 7.9 K/uL (1.4-9.0); NEUTROPHIL % 77.5 %; NRBC % 0 /100WBC (0-0.00); PLATELET COUNT 255 K/uL (150-450); RBC 4.47 M/uL (4.00-6.00); WBC 10.1 K/uL (4.0-11.0)
[2016-12-27 05:10] LABS: ALBUMIN 2.9 gm/dL (3.5-5.0); ANION GAP 10.4 (10.0-19.0); BLOOD UREA NITROGEN 19 mg/dL (6-24); CALCIUM 8.5 mg/dL (8.5-10.5); CHLORIDE 108 mMol/L (96-110); CO2 26 mMol/L (22-32); CREATININE 0.8 mg/dL (0.6-1.3); ESTIMATED GFR (MDRD EQUATION) > 60; MAGNESIUM 2.2 mg/dL (1.8-2.6); PHOSPHORUS 3.4 mg/dL (2.5-4.9); POTASSIUM 4.4 mMol/L (3.7-5.1); SODIUM 140 mMol/L (135-145)
--- NOTE | 2016-12-27 18:03 | NUR ---
Talked with Mary my restaurant hospitality manager this a.m. regarding life vest. Talked to staff this a.m and no one has heard from [facility] and they will check with Olman with [facility] to see where they are in the process. Notified late morning that referral was not faxed to [facility] but now has been. Talked with Emilia with [facility] and they have not filed for medicaid or disability but she will be helping them and she thinks he would qualify since has a young daughter at home. Talked to Olman with [facility] and he says is medicaid is pending they can see if meets qualifications and get him a life vest or we can do a contract with [facility]. Told him what Emilia from [facility] told me. He will follow up with their financial department. Notified patient and sister want to talk with me. Talked to Mary my restaurant hospitality manager and she has had a email from [facility] and she has asked him to look at [place] case through [facility] or approving under possible medicaid. Went and talked with patient, sister and several other family members. They are frustrated with the waiting and not knowing if he will get the vest or not. Told them I understand and where we are at in the process. Called Olman at [facility] and he says he updated his nurse. Olman mckay he will get set up with the lifevest in the next hour or so. Called his sister, Ute and updated her. She wonders if he will go home today. Talked to patient's nurse and she says Dr. Urbina said he would send him home tomorrow. She says she will go update patient and his sister. WIll follow.
--- NOTE | 2016-12-27 19:10 | NUR ---
Significant Event: PATIENT ALERT AND ORIENTED X3. VSS, AFEBRILE, ON ROOM AIR. NO C/O CHEST PAIN. UP AD JOHNATHAN IN ROOM/CHAIR. TO RECEIVE LIFE VEST THIS EVENING, DR. KAUR NOTIFIED NO NEW ORDERS, HOME TOMORROW. PATIENT AND FAMILY NOTIFIED. Follow up:
[2016-12-28 04:32] LABS: BASOPHIL % 0.4 %; EOSINOPHIL # 0.1 K/uL (0.0-0.5); EOSINOPHIL % 0.9 %; HEMATOCRIT 37.7 % (37.0-53.0); HEMOGLOBIN 12.2 g/dL (12.0-17.0); IMMATURE GRANULOCYTE # 0.1 K/uL (0.0-0.3); IMMATURE GRANULOCYTE % 1.3 %; LYMPHOCYTE # 1.3 K/uL (0.8-4.0); MCHC 32.4 gm/dL (32.0-36.5); MCV 86.7 fl (83.0-98.0); MONOCYTE # 0.9 K/uL (0.0-1.0); MONOCYTE % 8.9 %; MPV 10.1 fl (9.4-12.4); NEUTROPHIL # (ANC) 7.9 K/uL (1.4-9.0); NEUTROPHIL % 76.5 %; NRBC % 0 /100WBC (0-0.00); PLATELET COUNT 274 K/uL (150-450); RBC 4.35 M/uL (4.00-6.00); WBC 10.4 K/uL (4.0-11.0)
[2016-12-28 04:53] LABS: ANION GAP 12.7 (10.0-19.0); BLOOD UREA NITROGEN 20 mg/dL (6-24); CALCIUM 8.4 mg/dL (8.5-10.5); CHLORIDE 105 mMol/L (96-110); CO2 27 mMol/L (22-32); CREATININE 0.8 mg/dL (0.6-1.3); ESTIMATED GFR (MDRD EQUATION) > 60; MAGNESIUM 2.2 mg/dL (1.8-2.6); PHOSPHORUS 3.6 mg/dL (2.5-4.9); POTASSIUM 4.7 mMol/L (3.7-5.1); SODIUM 140 mMol/L (135-145)
--- NOTE | 2016-12-28 05:08 | NUR ---
A/O X 3. Lung sounds clear on RA. Bowel sounds present. Up independently in room. VSS. IV levaquin given x1. Life vest currently on. Education given. D/C today at noon.
[2016-12-28] MEDS ORDERED: CORDARONE,PACE200 MG PO (13:19)
[2016-12-28] MEDS ORDERED: ASPIRIN (CHILDR81 MG PO (13:20)
[2016-12-28] MEDS ORDERED: LIPITOR80 MG PO (13:21)
[2016-12-28] MEDS ORDERED: METOPROLOL SUCC25 MG PO (13:23)
[2016-12-28] MEDS ORDERED: FLOMAX0.4 MG PO (13:25)
[2016-12-28] MEDS ORDERED: ENTRESTO 24 MG1 EACH PO (13:25)
[2016-12-28] MEDS ORDERED: BRILINTA90 MG PO (13:27)
--- NOTE | 2016-12-28 14:20 | NUR ---
D: Noted slightly raised, ecchymotic area to rt lower abdomen. Patient reports from lovenox injection. aware.
--- NOTE | 2016-12-28 14:45 | NUR ---
Significant Event: Patient dismissed to home with family assistance. Denies pain. Up adlib in room. Life vest intact. Patient and sister voice understanding of dismissal instructions. Dismissed with dismissal instructions rx and belongings. Accompanied by sister and daughter. Follow up:
== END 2016-12-28 14:45 | disposition disaster alternative care site (69) | DRG 246 ==
LOC: GICU 12:44 → GPCU 12:44 → EDSTATUS 14:00 → GCAT 14:00 → GICU 12-22 09:00 → GPCU 12-22 11:25
PROVIDERS: Family Medicine; Internal Medicine; Internal Medicine Cardiovascular Disease; Internal Medicine Interventional Cardiology; ADMIT Internal Medicine
PROC: 027135Z Dilation of Coronary Artery, Two Arteries with Two Drug-eluting Intraluminal Devices, Percutaneous Approach (ICD-10-PCS; principal; 2016-12-21)
PROC: B2111ZZ Fluoroscopy of Multiple Coronary Arteries using Low Osmolar Contrast (ICD-10-PCS; principal; 2016-12-21)
PROC: 3E073PZ Introduction of Platelet Inhibitor into Coronary Artery, Percutaneous Approach (ICD-10-PCS; principal; 2016-12-21)
PROC: 02703ZZ Dilation of Coronary Artery, One Artery, Percutaneous Approach (ICD-10-PCS; principal; 2016-12-21)
PROC: 4A023N7 Measurement of Cardiac Sampling and Pressure, Left Heart, Percutaneous Approach (ICD-10-PCS; principal; 2016-12-21)
PROC: 5A1935Z Respiratory Ventilation, Less than 24 Consecutive Hours (ICD-10-PCS; 2016-12-21)
DX: I49.01 Ventricular fibrillation (principal); R57.0 Cardiogenic shock; J96.00 Acute respiratory failure, unspecified whether with hypoxia or hypercapnia; I50.21 Acute systolic (congestive) heart failure; R65.10 Systemic inflammatory response syndrome (SIRS) of non-infectious origin without acute organ dysfunction; I25.82 Chronic total occlusion of coronary artery; I11.0 Hypertensive heart disease with heart failure; I95.9 Hypotension, unspecified; I25.110 Atherosclerotic heart disease of native coronary artery with unstable angina pectoris; N39.0 Urinary tract infection, site not specified; L76.32 Postprocedural hematoma of skin and subcutaneous tissue following other procedure; I47.2 Ventricular tachycardia; I25.5 Ischemic cardiomyopathy; J98.4 Other disorders of lung; D72.829 Elevated white blood cell count, unspecified; I25.2 Old myocardial infarction; B95.2 Enterococcus as the cause of diseases classified elsewhere; Z16.21 Resistance to vancomycin; Y84.8 Other medical procedures as the cause of abnormal reaction of the patient, or of later complication, without mention of misadventure at the time of the procedure; Z95.5 Presence of coronary angioplasty implant and graft; Z82.49 Family history of ischemic heart disease and other diseases of the circulatory system; F17.210 Nicotine dependence, cigarettes, uncomplicated; Z78.1 Physical restraint status; Z23 Encounter for immunization; R33.9 Retention of urine, unspecified
CPT/HCPCS: C1725; C1769; C1874; C1887; C1894; C9113; C9601; C9606; J0282; J1327; J1644; J1650; J1956; J2250; J2270; J3010; J3475; J7030; J7040; J7050; J7060

== ENCOUNTER → 2016-12-21 | Outpatient (CLI) | payer MEDICAID ==
[~2016-12-21] MED LIST: ASPIRIN (CHILDR81 MG PO; BRILINTA90 MG PO; CORDARONE,PACE200 MG PO; ENTRESTO 24 MG1 EACH PO; FLOMAX0.4 MG PO; LIPITOR80 MG PO; METOPROLOL SUCC25 MG PO
== END | disposition disaster alternative care site (69) ==
LOC: GAIR 13:16
DX: I46.9 Cardiac arrest, cause unspecified (principal); I49.01 Ventricular fibrillation; F17.220 Nicotine dependence, chewing tobacco, uncomplicated; I10 Essential (primary) hypertension; R00.0 Tachycardia, unspecified; R05 Cough
CPT/HCPCS: A0422; A0431; A0436; J2250; J3010